=== PATIENT | female | born 1975 | race Caucasian/White ===

== ENCOUNTER → 2018-12-31 | Outpatient (CLI) | payer OTHER ==
--- NOTE | 2019-01-01 12:51 | MM ---
Reason for exam: screening (asymptomatic). History: Patient had first child at age 39. Family history of breast cancer in paternal aunt. Physical Findings: A clinical breast exam by your physician is recommended on an annual basis and results should be correlated with mammographic findings. MG Screening Mammo w CAD Bilateral CC and MLO view(s) were taken. No prior studies available for comparison. The breast tissue is heterogeneously dense. This may lower the sensitivity of mammography. No suspicious abnormality on the left. Right upper outer quadrant posterior depth focal asymmetry. ASSESSMENT: Incomplete: need additional imaging evaluation, BI-RAD 0 RECOMMENDATION: Special view mammogram of the right breast. If lesion persists on supplemental views, image directed ultrasound is recommended. [facility] will attempt to contact patient to return for supplemental views and ultrasound if indicated.
== END | disposition home or self-care (01) ==
LOC: RADMAMWWP 07:01
PROVIDERS: ATTEND Obstetrics & Gynecology
DX: Z12.31 Encounter for screening mammogram for malignant neoplasm of breast (principal)
CPT/HCPCS: 77067

== ENCOUNTER → 2019-01-09 | Outpatient (CLI) | payer OTHER ==
--- NOTE | 2019-01-12 08:55 | MM ---
Reason for exam: additional evaluation requested from abnormal screening. Last mammogram was performed less than 1 month ago. History: Patient had first child at age 39. Family history of breast cancer in paternal aunt. Physical Findings: Nurse did not find any significant physical abnormalities on exam. MG Work Up Mamm w CAD RT Spot compression CC, spot compression MLO, and ML view(s) were taken of the right breast. Prior study comparison: December 31, 2018, bilateral MG screening mammo w CAD. The breast tissue is extremely dense which could obscure a lesion on mammography. Persistent right upper outer quadrant focal asymmetry, dense breast tissue versus hamartoma. These results were verbally communicated with the patient and result sheet given to the patient on 01/09/19. ASSESSMENT: Incomplete: need additional imaging evaluation, BI-RAD 0 RECOMMENDATION: Ultrasound of the right breast. upper outer quadrant
--- NOTE | 2019-01-12 08:56 | USB ---
Reason for exam: additional evaluation requested from abnormal screening. History: Patient had first child at age 39. Family history of breast cancer in paternal aunt. US Breast Workup Limited RT Right limited breast ultrasound including focal area of concern, retroareolar and axilla demonstrates a 0.6 x 0.7 x 0.3cm oval, cystic lesion at 10 o'clock. Dense tissue corresponds to the mammographic focal asymmetry. These results were verbally communicated with the patient and result sheet given to the patient on 01/09/19. ASSESSMENT: Benign, BI-RAD 2 RECOMMENDATION: Return to routine screening mammogram schedule for both breasts.
== END | disposition home or self-care (01) ==
LOC: RADMAMWWP 14:55
PROVIDERS: ATTEND Obstetrics & Gynecology
DX: R92.8 Other abnormal and inconclusive findings on diagnostic imaging of breast (principal)
CPT/HCPCS: 77065